=== PATIENT | male | born 1945 | race Caucasian/White ===

== ENCOUNTER 2024-05-31 19:38 | Inpatient (IN) | payer MEDICARE, MEDICAID ==
[~2024-05-31] VITALS: Ht 182.8 cm; Wt 98.0 kg
[2024-05-31 19:45] VITALS: BP 124/48
[2024-05-31 19:57] LABS: BASO # 0.1 10*3/uL (0.0-0.1); BASO % 1.1 % (0.0-1.0); EOS # 0.3 10*3/uL (0.0-0.4); EOS % 3.5 % (1.0-4.0); HEMATOCRIT 41.3 % (42.0-52.0); LYMPH # 2.4 10*3/uL (1.3-4.4); LYMPH % 27.8 % (27.0-41.0); MEAN CELL VOLUME 101.5 fl (80.0-94.0); MEAN CORPUSCULAR HGB 35.1 pg (27.0-31.0); MEAN CORPUSCULAR HGB CONC 34.6 g/dl (33.0-37.0); MEAN PLATELET VOLUME 10.9 fl (9.6-12.3); MONO # 0.8 10*3/uL (0.1-1.0); MONO % 9.5 % (3.0-9.0); NEUT # 4.9 10*3/uL (2.3-7.9); NEUT % 57.7 % (47.0-73.0); PLATELET COUNT AUTOMATED 174 10*3/uL (130-400); RED BLOOD COUNT 4.07 10*6/uL (4.50-5.90); RED CELL DISTRI WIDTH 13.8 % (0-14.5); WHITE BLOOD COUNT 8.5 10*3/uL (4.8-10.8)
[2024-05-31 20:08] LABS: ACT PARTIAL THROMBO TIME 28.5 SECONDS (20.0-32.1)
[2024-05-31 20:16] LABS: ALKALINE PHOSPHATASE 77 U/L (46-116); BUN 23 mg/dl (9-23); CHLORIDE 109 mmol/L (98-107); CPK 84 U/L (34-171); ETHYL ALCOHOL < 3.0 mg/dl (<3); LIPASE 35 U/L (12-53); POTASSIUM 4.1 mmol/L (3.4-5.1); SGPT/ALT 17 U/L (5-49); TOTAL PROTEIN 5.8 gm/dL (6.0-8.0)
[2024-05-31 20:35] LABS: BILIRUBIN Negative (Negative); BLOOD 1+ (Negative); CLARITY Turbid (Clear); COLOR Yellow (Yellow); GLUCOSE Negative (Negative); KETONE Trace (Negative); LEUKO ESTERASE 3+ (Negative); NITRITE Negative (Negative); SPECIFIC GRAVITY 1.025 (1.001-1.030)
[2024-05-31 20:40] LABS: BACTERIA 2+; TRIP PHOS CRYSTALS 1+; WBC TNTC wbc/hpf (0-5)
[2024-05-31 20:52] LABS: URINE AMPHETAMINES Negative (1000ng/ml); URINE BARBITURATES Negative (200ng/ml); URINE BENZODIAZEPINES Negative (200ng/ml); URINE CANNABINOIDS (THC) Negative (50ng/ml); URINE COCAINE Negative (300ng/ml); URINE METHADONE Negative (300ng/ml); URINE OPIATES Negative (300ng/ml); URINE PHENCYCLIDINE Negative (25ng/ml)
[2024-05-31] MEDS ORDERED: Ciprofloxacin Hydrochloride 500 MG TAB PO ONE (22:20)
[2024-05-31 22:38] VITALS: BP 126/70
[2024-05-31] MEDS ORDERED: Magnesium Hydroxide 30 ML UDC PO PRN (23:10)
[2024-05-31] MEDS ORDERED: ACETAMINOPHEN 325 MG TAB PO PRN (23:10)
[2024-05-31] MEDS ORDERED: MG-AL HYDROXIDE/SIMETICONE 30 ML UDC PO PRN (23:10)
[2024-05-31] MEDS ORDERED: Menthol/Zinc Oxide 4 GM THIN T PRN (23:15)
[2024-05-31] MEDS ORDERED: ASPIRIN ADULT L81 M2 PO (23:39)
[2024-05-31] MEDS ORDERED: ALLOPURINOL300 MG PO (23:39)
[2024-05-31] MEDS ORDERED: ATORVASTATIN CA20 M1 PO (23:40)
[2024-05-31] MEDS ORDERED: DAILY VALUE1 EACH PO (23:41)
[2024-05-31] MEDS ORDERED: TUMS300 MG PO (23:41)
[2024-05-31] MEDS ORDERED: ELIQUIS5 M1 PO (23:42)
[2024-05-31] MEDS ORDERED: DULCOLAX10 M1 R (23:42)
[2024-05-31] MEDS ORDERED: ESKALITH,LITHI300 MG PO (23:44)
[2024-05-31] MEDS ORDERED: FINASTERIDE5 M1 PO (23:45)
[2024-05-31] MEDS ORDERED: FLOMAX0.4 MG PO (23:46)
[2024-05-31] MEDS ORDERED: NATURE'S BLEND F1 MG PO (23:46)
[2024-05-31] MEDS ORDERED: FLEET ENEMA EX230 M1 R (23:46)
[2024-05-31] MEDS ORDERED: MELATONIN3 MG PO (23:47)
[2024-05-31] MEDS ORDERED: NAMENDA-5 PO (23:48)
[2024-05-31] MEDS ORDERED: LOPRESSOR25 MG PO (23:48)
[2024-05-31] MEDS ORDERED: SENOKOT-S TABL1 EACH PO (23:49)
[2024-05-31] MEDS ORDERED: PROVERA10 MG PO (23:49)
[2024-05-31] MEDS ORDERED: RIVASTIGMINE TAR6 M1 PO (23:49)
[2024-05-31] MEDS ORDERED: THIAMINE HCL100 MG PO (23:50)
[2024-05-31] MEDS ORDERED: SYNTHROID25 MCG PO (23:50)
[2024-05-31] MEDS ORDERED: TRAZODONE100 MG PO (23:51)
[2024-06-01] MEDS ORDERED: Ziprasidone Hydrochloride 20 MG CAP PO PRN (00:10)
[2024-06-01] MEDS ORDERED: Water, Sterile 10 ML VIAL IM PRN (00:10)
[2024-06-01] MEDS ORDERED: LORazepam 1 MG TAB PO PRN (00:10)
[2024-06-01] MEDS ORDERED: LORazepam 2 MG/ML VIAL IM PRN (00:10)
[2024-06-01] MEDS ORDERED: CALCIUM (TUMS) 500MG PO PRN (00:45)
[2024-06-01] MEDS ORDERED: BISACODYL 10 MG SUPP R PRN (00:50)
[2024-06-01] MEDS ORDERED: Na Phos, Dibasic/Na Phos, Mo 1 EA BOT R PRN (00:50)
[2024-06-01] MEDS ORDERED: Fosfomycin Tromethamine 3 GM PDS PO ONE (01:20)
[2024-06-01] MEDS ORDERED: Levothyroxine Sodium 25 MCG TAB PO SCH (06:00)
[2024-06-01 07:39] VITALS: BP 141/59
[2024-06-01 08:18] LABS: VITAMIN D, 25-HYDROXY 43.9 ng/mL (30-100)
[2024-06-01] MEDS ORDERED: APIXABAN 5 MG TAB PO SCH (09:00)
[2024-06-01] MEDS ORDERED: Memantine Hydrochloride 5 MG TAB PO SCH (09:00)
[2024-06-01] MEDS ORDERED: Rivastigmine Tartrate 3 MG CAP PO SCH (09:00)
[2024-06-01] MEDS ORDERED: medroxyPROGESTERone acetate 10 MG TAB PO SCH (09:00)
[2024-06-01] MEDS ORDERED: Thiamine 100 MG TAB PO SCH (09:00)
[2024-06-01] MEDS ORDERED: CITALOPRAM 20 MG TAB PO SCH (09:00)
[2024-06-01] MEDS ORDERED: ALLOPURINOL 300 MG TAB PO SCH (09:00)
[2024-06-01] MEDS ORDERED: FINASTERIDE 5 MG TAB PO SCH (09:00)
[2024-06-01] MEDS ORDERED: FAMOTIDINE 20 MG TAB PO SCH (09:00)
[2024-06-01] MEDS ORDERED: MULTIVITAMIN 1 TAB TAB PO SCH (09:00)
[2024-06-01 10:00] VITALS: BP 133/49
[2024-06-01] MEDS ORDERED: FOLIC ACID 1 MG TAB PO SCH (10:00)
[2024-06-01] MEDS ORDERED: Tamsulosin Hydrochloride 0.4 MG CAP PO SCH (10:00)
[2024-06-01] MEDS ORDERED: ASPIRIN ENTERIC COATED 81 MG TAB PO SCH (10:00)
[2024-06-01] MEDS ORDERED: Metoprolol Tartrate 25 MG TAB PO SCH (10:00)
[2024-06-01] MEDS ORDERED: CYANOCOBALAMIN 1,000 MCG/ML VIAL IM SCH (11:00)
[2024-06-01 14:00] VITALS: BP 141/59
[2024-06-01 20:00] VITALS: BP 127/54
[2024-06-01] MEDS ORDERED: ATORVASTATIN CALCIUM 20 MG TAB PO SCH (21:00)
[2024-06-02 07:53] VITALS: BP 106/63
[2024-06-02] MEDS ORDERED: CIMETIDINE 200 MG TAB PO SCH (09:00)
[2024-06-03] MEDS ORDERED: Dextromethorphan/Quinidine 20-10 mg cap PO SCH (09:00)
[2024-06-03 10:00] VITALS: BP 104/68
[2024-06-03 18:00] VITALS: BP 104/68
[2024-06-03 20:00] VITALS: BP 133/49
[2024-06-03] MEDS ORDERED: CEFDINIR 300 MG CAP PO SCH (21:00)
[2024-06-04 10:00] VITALS: BP 116/62
[2024-06-04 18:00] VITALS: BP 116/62
[2024-06-05 06:51] LABS: ALKALINE PHOSPHATASE 79 U/L (46-116); BUN 16 mg/dl (9-23); CHLORIDE 111 mmol/L (98-107); POTASSIUM 4.2 mmol/L (3.4-5.1); SGPT/ALT 33 U/L (5-49); TOTAL PROTEIN 6.2 gm/dL (6.0-8.0)
[2024-06-05 07:45] VITALS: BP 122/82
[2024-06-05 09:14] LABS: BASO # 0.1 10*3/uL (0.0-0.1); BASO % 1.5 % (0.0-1.0); EOS # 0.3 10*3/uL (0.0-0.4); HEMATOCRIT 45.7 % (42.0-52.0); LYMPH # 2.3 10*3/uL (1.3-4.4); LYMPH % 32.1 % (27.0-41.0); MEAN CELL VOLUME 104.1 fl (80.0-94.0); MEAN CORPUSCULAR HGB 34.6 pg (27.0-31.0); MEAN CORPUSCULAR HGB CONC 33.3 g/dl (33.0-37.0); MEAN PLATELET VOLUME 10.9 fl (9.6-12.3); MONO # 0.6 10*3/uL (0.1-1.0); NEUT # 3.9 10*3/uL (2.3-7.9); NEUT % 54.1 % (47.0-73.0); PLATELET COUNT AUTOMATED 168 10*3/uL (130-400); RED BLOOD COUNT 4.39 10*6/uL (4.50-5.90); RED CELL DISTRI WIDTH 13.4 % (0-14.5); WHITE BLOOD COUNT 7.3 10*3/uL (4.8-10.8)
[2024-06-05 18:00] VITALS: BP 118/50
[2024-06-05] MEDS ORDERED: Dextromethorphan/Quinidine 20-10 mg cap PO SCH (21:00)
[2024-06-05] MEDS ORDERED: NYSTATIN 15 GM BOT T SCH (22:00)
[2024-06-06 10:00] VITALS: BP 118/50
[2024-06-06 18:00] VITALS: BP 118/50
[2024-06-07 07:55] VITALS: BP 138/58
[2024-06-07 08:02] VITALS: BP 138/58
[2024-06-07 18:00] VITALS: BP 138/58
[2024-06-07 19:16] VITALS: BP 101/53
[2024-06-08 10:11] VITALS: BP 123/50
[2024-06-08] MEDS ORDERED: LORazepam 0.5 MG TAB PO SCH (13:00)
[2024-06-08 18:00] VITALS: BP 123/50
[2024-06-09 08:01] LABS: BASO # 0.1 10*3/uL (0.0-0.1); BASO % 1.7 % (0.0-1.0); EOS # 0.5 10*3/uL (0.0-0.4); EOS % 6.6 % (1.0-4.0); HEMATOCRIT 44.4 % (42.0-52.0); LYMPH # 2.2 10*3/uL (1.3-4.4); LYMPH % 31.2 % (27.0-41.0); MEAN CELL VOLUME 101.8 fl (80.0-94.0); MEAN CORPUSCULAR HGB 34.6 pg (27.0-31.0); MEAN PLATELET VOLUME 11.4 fl (9.6-12.3); MONO # 0.6 10*3/uL (0.1-1.0); NEUT # 3.7 10*3/uL (2.3-7.9); NEUT % 51.1 % (47.0-73.0); PLATELET COUNT AUTOMATED 155 10*3/uL (130-400); RED BLOOD COUNT 4.36 10*6/uL (4.50-5.90); RED CELL DISTRI WIDTH 13.3 % (0-14.5); WHITE BLOOD COUNT 7.2 10*3/uL (4.8-10.8)
[2024-06-09 08:19] LABS: ALKALINE PHOSPHATASE 91 U/L (46-116); BUN 12 mg/dl (9-23); CHLORIDE 110 mmol/L (98-107); SGPT/ALT 59 U/L (5-49)
[2024-06-09 10:00] VITALS: BP 123/50
[2024-06-09 18:00] VITALS: BP 123/50
[2024-06-09] MEDS ORDERED: HYDROCORTISONE 1% CREAM 14.2 GM TUBE T SCH (18:00)
[2024-06-10 08:03] VITALS: BP 117/76
[2024-06-10 18:00] VITALS: BP 117/76
[2024-06-11 07:30] LABS: ALKALINE PHOSPHATASE 95 U/L (46-116); BUN 17 mg/dl (9-23); CHLORIDE 111 mmol/L (98-107); POTASSIUM 3.8 mmol/L (3.4-5.1); SGPT/ALT 51 U/L (5-49)
[2024-06-11 07:53] VITALS: BP 126/78
[2024-06-11 19:36] VITALS: BP 122/66
[2024-06-11] MEDS ORDERED: medroxyPROGESTERone acetate 10 MG TAB PO SCH (21:00)
[2024-06-12] MEDS ORDERED: LORAZEPAM0.5 M1 PO (10:11)
[2024-06-12] MEDS ORDERED: RIVASTIGMINE TAR3 M1 PO (10:11)
[2024-06-12] MEDS ORDERED: CITALOPRAM20 MG PO (10:11)
[2024-06-12] MEDS ORDERED: NEUDEXT PO (10:11)
[2024-06-12] MEDS ORDERED: NAMENDA-5 PO (10:11)
[2024-06-12] MEDS ORDERED: CIMETIDINE200 MG PO (10:11)
[2024-06-12] MEDS ORDERED: MEDROXYPROGESTE10 M1 PO (10:11)
== END 2024-06-12 14:10 | DRG 885 ==
LOC: ED 19:38 → 3N 22:25
PROVIDERS: Counselor Professional; Internal Medicine; Nurse Practitioner Women's Health; ADMIT Psychiatry & Neurology Psychiatry; ATTEND Psychiatry & Neurology Psychiatry
PROC: GZHZZZZ Group Psychotherapy (ICD-10-PCS; principal; 2024-06-01)
PROC: GZ56ZZZ Individual Psychotherapy, Supportive (ICD-10-PCS; 2024-06-01)
DX: F31.81 Bipolar II disorder (principal); E44.0 Moderate protein-calorie malnutrition; L97.829 Non-pressure chronic ulcer of other part of left lower leg with unspecified severity; L97.819 Non-pressure chronic ulcer of other part of right lower leg with unspecified severity; N30.01 Acute cystitis with hematuria; G30.9 Alzheimer's disease, unspecified; F02.80 Dementia in other diseases classified elsewhere, unspecified severity, without behavioral disturbance, psychotic disturbance, mood disturbance, and anxiety; I73.9 Peripheral vascular disease, unspecified; M10.9 Gout, unspecified; E03.9 Hypothyroidism, unspecified; I10 Essential (primary) hypertension; E87.8 Other disorders of electrolyte and fluid balance, not elsewhere classified; R73.9 Hyperglycemia, unspecified; D75.89 Other specified diseases of blood and blood-forming organs; N40.0 Benign prostatic hyperplasia without lower urinary tract symptoms; F63.9 Impulse disorder, unspecified; J44.9 Chronic obstructive pulmonary disease, unspecified; E78.5 Hyperlipidemia, unspecified; I25.10 Atherosclerotic heart disease of native coronary artery without angina pectoris; I48.91 Unspecified atrial fibrillation; Z88.1 Allergy status to other antibiotic agents; Z68.29 Body mass index [BMI] 29.0-29.9, adult; Z79.899 Other long term (current) drug therapy; Z79.01 Long term (current) use of anticoagulants; Z79.2 Long term (current) use of antibiotics; Z88.0 Allergy status to penicillin; Z88.8 Allergy status to other drugs, medicaments and biological substances; Z91.09 Other allergy status, other than to drugs and biological substances